=== PATIENT | female | born 1990 | race Caucasian/White ===

== ENCOUNTER 2021-05-09 13:53 | Inpatient (IN) | payer OTHER ==
[2021-05-09] MEDS ORDERED: ELECTROLYTE-148 SOLN 500 ML IV ONE (15:00)
[2021-05-09 15:52] LABS: BASO % 0.6 % (0-2.0); EOS % 2.4 % (0-4.5); HEMATOCRIT 35.4 % (32.4-45.2); HEMOGLOBIN 11.6 GM/dL (10.7-15.3); LYMPH % 20.5 % (8-40); MCH 29.3 pg (25.7-33.7); MCHC 32.9 g/dl (32.0-36.0); MEAN CELL VOLUME 89.1 fl (80-96); MEAN PLT VOLUME 8.6 fl (7.5-11.1); MONO % 4.7 % (3.8-10.2); NEUT % 71.8 % (42.8-82.8); PLATELET COUNT 211 10^3/uL (134-434); RBC 3.97 M/mm3 (3.60-5.2); RDW 14.2 % (11.6-15.6); WHITE BLOOD COUNT 5.4 K/mm3 (4.0-10.0)
[2021-05-09] MEDS ORDERED: ELECTROLYTE-148 SOLN 500 ML IV SCH (16:00)
[2021-05-09 16:01] LABS: INR 0.85 (0.83-1.09); PROTHROMBIN TIME (PATIENT) 10.3 SEC (9.7-13.0)
[2021-05-09 16:12] LABS: CALCIUM 8.5 mg/dL (8.5-10.1)
[2021-05-09 16:13] LABS: BLOOD UREA NITROGEN 13.1 mg/dL (7-18)
[2021-05-09 16:16] LABS: CREATININE 0.6 mg/dL (0.55-1.3)
[2021-05-09 16:18] VITALS: BMI 34.8
[2021-05-09] MEDS ORDERED: CITRIC ACID/SODIUM CITRATE 30 ML UNIT-DOSE CUP PO ONE (16:30)
[2021-05-09] MEDS ORDERED: OXYTOCIN 20 UNITS in 0.9% NS 20 UNIT/1,000 ML INFUS.BAG IV ONE ×2 (17:26→20:11)
[2021-05-09] MEDS ORDERED: CEFAZOLIN 2 GM/D5W 2 GM/50 ML ML IVPB ONE (17:26)
[2021-05-09] MEDS ORDERED: morphine SULFATE/PF 0.5 MG/ML (2cc Syringe - QUVA) ONE (17:29)
[2021-05-09] MEDS ORDERED: KETOROLAC TROMETHAMINE 30 MG/1 ML VIAL ONE (17:31)
[2021-05-09] MEDS ORDERED: OXYTOCIN 10 UNITS/ML VIAL ONE (18:03)
[2021-05-09] MEDS ORDERED: ONDANSETRON 4 MG/2 ML VIAL IVPUSH PRN (19:08)
[2021-05-09 19:30] LABS: CORD BASE EXCESS -6.7 mmol/L (0-2); CORD HCO3 21.9 mmHg (20-29); CORD PCO2 56.2 mmHg (30-78); CORD pH 7.209 (7.14-7.44)
[2021-05-09 19:32] LABS: CORD HCO3 23.3 mmHg (20-29); CORD PCO2 52.9 mmHg (30-78); CORD pH 7.262 (7.14-7.44)
[2021-05-09] MEDS: OXYTOCIN 20 UNITS in 0.9% NS 20 UNIT/1,000 ML INFUS.BAG IV SCH (20:25)
[2021-05-09] MEDS ORDERED: oxyCODONE HCL 5 MG TABLET PO PRN (21:33)
[2021-05-09] MEDS ORDERED: ACETAMINOPHEN 1000 MG/100 ML VIAL (NON FORMULARY) IVPB ONE (21:45)
[2021-05-10] MEDS: OXYTOCIN 20 UNITS in 0.9% NS 20 UNIT/1,000 ML INFUS.BAG IV SCH ×2 (02:35→23:10)
[2021-05-10] MEDS ORDERED: IBUPROFEN 600 MG TABLET (FP) PO PRN (02:37)
[2021-05-10] MEDS ORDERED: BENZOCAINE 20% 57 GM BOTTLE TP PRN (11:09)
[2021-05-10] MEDS ORDERED: diphenhydrAMINE HCL 25 MG CAPSULE (FP) PO PRN (11:09)
[2021-05-10] MEDS ORDERED: METHYLERGONOVINE MALEATE 0.2 MG/1 ML AMP IM PRN (11:09)
[2021-05-10] MEDS ORDERED: BENZOCAINE 28 GM HEMORRHOIDAL OINTMENT RC PRN (11:09)
[2021-05-10] MEDS ORDERED: IBUPROFEN 800 MG/8 ML IJ IVPB PRN (11:09)
[2021-05-10] MEDS ORDERED: WITCH HAZEL 50% (TUCKS) 40 PAD/JAR PAD TP PRN (11:09)
[2021-05-10] MEDS ORDERED: OXYTOCIN 20 UNITS in 0.9% NS 20 UNIT/1,000 ML INFUS.BAG IV SCH (11:15)
[2021-05-10] MEDS ORDERED: DEXTROSE 5%-LACTATED RINGERS 1,000 ML IV SCH (11:15)
[2021-05-10 13:44] LABS: BASO % 0.5 % (0-2.0); EOS % 1.4 % (0-4.5); HEMATOCRIT 30.9 % (32.4-45.2); HEMOGLOBIN 10.1 GM/dL (10.7-15.3); LYMPH % 15.6 % (8-40); MCH 29.3 pg (25.7-33.7); MCHC 32.6 g/dl (32.0-36.0); MEAN CELL VOLUME 89.9 fl (80-96); MEAN PLT VOLUME 8.8 fl (7.5-11.1); MONO % 2.7 % (3.8-10.2); NEUT % 79.8 % (42.8-82.8); PLATELET COUNT 180 10^3/uL (134-434); RBC 3.43 M/mm3 (3.60-5.2); RDW 14.8 % (11.6-15.6); WHITE BLOOD COUNT 5.7 K/mm3 (4.0-10.0)
[2021-05-10] MEDS: ACETAMINOPHEN 325 MG TABLET (FP) PO PRN ×3 (14:01→22:17)
[2021-05-10] MEDS: SIMETHICONE 80 MG TAB.CHEW (FP) PO PRN ×3 (14:01→22:19)
[2021-05-10] MEDS: IBUPROFEN 600 MG TABLET (FP) PO PRN ×3 (14:01→22:18)
[2021-05-10] MEDS: CEFAZOLIN 1 GM/D5W 1 GM/50 ML BAG IVPB SCH (17:55)
[2021-05-10] MEDS: SENNOSIDES/DOCUSATE COMBO (SENNA PLUS) TABLET (UD) PO PRN (22:17)
[2021-05-10] MEDS: oxyCODONE HCL 5 MG TABLET PO PRN (22:18)
[2021-05-11] MEDS: CEFAZOLIN 1 GM/D5W 1 GM/50 ML BAG IVPB SCH (01:35)
[2021-05-11] MEDS: ACETAMINOPHEN 325 MG TABLET (FP) PO PRN ×3 (02:10→22:41)
[2021-05-11] MEDS: SIMETHICONE 80 MG TAB.CHEW (FP) PO PRN ×4 (02:10→22:43)
[2021-05-11] MEDS: oxyCODONE HCL 5 MG TABLET PO PRN ×3 (02:10→22:42)
[2021-05-11] MEDS: IBUPROFEN 600 MG TABLET (FP) PO PRN ×3 (02:11→15:27)
[2021-05-11 09:50] LABS: BASO % 0.6 % (0-2.0); EOS % 2.9 % (0-4.5); HEMATOCRIT 27.9 % (32.4-45.2); LYMPH % 21.6 % (8-40); MCH 29.4 pg (25.7-33.7); MCHC 32.4 g/dl (32.0-36.0); MEAN CELL VOLUME 90.9 fl (80-96); MEAN PLT VOLUME 8.5 fl (7.5-11.1); MONO % 3.5 % (3.8-10.2); NEUT % 71.4 % (42.8-82.8); PLATELET COUNT 184 10^3/uL (134-434); RBC 3.07 M/mm3 (3.60-5.2); RDW 14.5 % (11.6-15.6); WHITE BLOOD COUNT 5.7 K/mm3 (4.0-10.0)
[2021-05-11] MEDS ORDERED: BISACODYL 10 MG SUPP.RECT PR PRN (11:09)
[2021-05-11] MEDS: SENNOSIDES/DOCUSATE COMBO (SENNA PLUS) TABLET (UD) PO PRN (22:42)
[2021-05-12] MEDS: oxyCODONE HCL 5 MG TABLET PO PRN (04:24)
[2021-05-12] MEDS: IBUPROFEN 600 MG TABLET (FP) PO PRN ×2 (04:24→10:40)
[2021-05-12] MEDS: SIMETHICONE 80 MG TAB.CHEW (FP) PO PRN (04:25)
[2021-05-12] MEDS: ACETAMINOPHEN 325 MG TABLET (FP) PO PRN (04:33)
[2021-05-12 08:32] VITALS: BP 125/70; PULSE 89; TEMP 98.5
== END 2021-05-12 13:35 | disposition home or self-care (01) | DRG 540 ==
LOC: JLDR 13:53 → J3W 20:35
PROVIDERS: ADMIT Family Medicine; ATTEND Family Medicine
PROC: 10D00Z1 Extraction of Products of Conception, Low, Open Approach (ICD-10-PCS; principal; 2021-05-09)
DX: O34.219 Maternal care for unspecified type scar from previous cesarean delivery (principal); O36.63X0 Maternal care for excessive fetal growth, third trimester, not applicable or unspecified; Z3A.49 Greater than 42 weeks gestation of pregnancy; Z37.0 Single live birth
CPT/HCPCS: 36415; 36600; 80048; 82803; 85025; 85610; 85730; 86780; 86850; 86900; 86901; 88307-TC; C9803; J0131; U0003; U0005

== ENCOUNTER 2022-04-26 10:00 | Inpatient (IN) | payer OTHER ==
[2022-04-26] MEDS ORDERED: ELECTROLYTE-148 SOLN 500 ML IV SCH ×2 (11:00)
[2022-04-26] MEDS ORDERED: CITRIC ACID/SODIUM CITRATE 30 ML UNIT-DOSE CUP PO ONE (11:00)
[2022-04-26 11:51] VITALS: BMI 35.0
[2022-04-26] MEDS ORDERED: morphine SULFATE/PF 1 MG/2 ML (2cc Syringe - QUVA) EP ONE (12:03)
[2022-04-26] MEDS ORDERED: ONDANSETRON 4 MG/2 ML VIAL IVPUSH PRN (12:03)
[2022-04-26] MEDS ORDERED: morphine SULFATE/PF 1 MG/2 ML (2cc Syringe - QUVA) ONE (12:07)
[2022-04-26] MEDS ORDERED: ceFAZolin SODIUM 1 GM VIAL ONE (12:07)
[2022-04-26] MEDS ORDERED: SODIUM CHLORIDE 0.9% P/F 10 ML VIAL IJ ONE (12:07)
[2022-04-26] MEDS ORDERED: LACTATED RINGERS SOLUTION 1,000 ML IV SCH (12:15)
[2022-04-26] MEDS ORDERED: PHENYLEPHRINE HCL 10 MG/1 ML SINGLE DOSE VIAL ONE (12:42)
[2022-04-26] MEDS ORDERED: OXYTOCIN 10 UNITS/ML VIAL ONE (12:44)
[2022-04-26] MEDS: OXYTOCIN 20 UNITS in 0.9% NS 20 UNIT/1,000 ML INFUS.BAG IV SCH ×2 (12:45→18:16)
[2022-04-26] MEDS ORDERED: OXYTOCIN 20 UNITS in 0.9% NS 20 UNIT/1,000 ML INFUS.BAG IV ONE (12:59)
[2022-04-26] MEDS ORDERED: MIDAZOLAM HCL 2 MG/2 ML SINGLE DOSE VIAL ONE (13:11)
[2022-04-26] MEDS ORDERED: ACETAMINOPHEN 1000 MG/100 ML BAG IVPB PRN (13:53)
[2022-04-26] MEDS ORDERED: IBUPROFEN 600 MG TABLET (FP) PO PRN (13:53)
[2022-04-26] MEDS ORDERED: ONDANSETRON 4 MG/2 ML VIAL IVPB PRN (13:53)
[2022-04-26] MEDS ORDERED: SENNOSIDES/DOCUSATE COMBO (SENNA PLUS) TABLET (UD) PO PRN (13:53)
[2022-04-26 14:00] LABS: CORD BASE EXCESS -5.2 mmol/L (0-2); CORD HCO3 21.3 mmHg (20-29); CORD PCO2 44.8 mmHg (30-78); CORD pH 7.294 (7.14-7.44)
[2022-04-26 14:03] LABS: CORD HCO3 26.3 mmHg (20-29); CORD PCO2 60.9 mmHg (30-78); CORD pH 7.253 (7.14-7.44)
[2022-04-26] MEDS: SIMETHICONE 80 MG TAB.CHEW (FP) PO PRN (23:46)
[2022-04-26] MEDS: IBUPROFEN 800 MG/8 ML IJ IVPB PRN (23:47)
[2022-04-27] MEDS: SIMETHICONE 80 MG TAB.CHEW (FP) PO PRN ×3 (06:10→23:25)
[2022-04-27 07:45] LABS: BASO % 0.3 % (0-2.0); EOS % 1.7 % (0-4.5); HEMATOCRIT 29.5 % (32.4-45.2); HEMOGLOBIN 9.7 GM/dL (10.7-15.3); LYMPH % 17.5 % (8-40); MCH 28.7 pg (25.7-33.7); MCHC 32.9 g/dl (32.0-36.0); MEAN CELL VOLUME 87.3 fl (80-96); MEAN PLT VOLUME 8.6 fl (7.5-11.1); MONO % 3.7 % (3.8-10.2); NEUT % 76.8 % (42.8-82.8); PLATELET COUNT 211 10^3/uL (134-434); RBC 3.38 M/mm3 (3.60-5.2); RDW 15.4 % (11.6-15.6); WHITE BLOOD COUNT 5.7 K/mm3 (4.0-10.0)
[2022-04-27] MEDS: IBUPROFEN 800 MG/8 ML IJ IVPB PRN (09:21)
[2022-04-27] MEDS ORDERED: BISACODYL 10 MG SUPP.RECT RC PRN (13:54)
[2022-04-27] MEDS: ACETAMINOPHEN 325 MG TABLET (FP) PO PRN ×2 (15:01→21:36)
[2022-04-27] MEDS: IBUPROFEN 400 MG TABLET (FP) PO PRN ×2 (18:18→23:26)
[2022-04-28] MEDS: SIMETHICONE 80 MG TAB.CHEW (FP) PO PRN ×2 (06:21→12:31)
[2022-04-28] MEDS: ACETAMINOPHEN 325 MG TABLET (FP) PO PRN (06:21)
[2022-04-28 10:08] VITALS: BP 126/84; PULSE 86; TEMP 97.7
[2022-04-28] MEDS: IBUPROFEN 400 MG TABLET (FP) PO PRN (12:31)
== END 2022-04-28 18:55 | disposition home or self-care (01) | DRG 540 ==
LOC: JLDR 10:35 → J3W 15:49
PROVIDERS: ADMIT Family Medicine; ATTEND Family Medicine
PROC: 10D00Z1 Extraction of Products of Conception, Low, Open Approach (ICD-10-PCS; principal; 2022-04-26)
DX: O34.211 Maternal care for low transverse scar from previous cesarean delivery (principal); Z3A.39 39 weeks gestation of pregnancy; Z37.0 Single live birth
CPT/HCPCS: 36415; 36600; 80053; 81003; 82803; 85025; 85610; 85730; 86780; 86850; 86900; 86901; 88307-TC; C9803-CS; U0003; U0005

== ENCOUNTER 2023-11-25 10:00 | Inpatient (IN) | payer OTHER ==
[2023-11-25] MEDS: ELECTROLYTE-148 SOLN 1,000 ML IV SCH (11:00)
[2023-11-25 11:29] VITALS: BMI 33.6
[2023-11-25] MEDS ORDERED: OXYTOCIN 30 UNITS in 0.9% NS 30 UNIT/500 ML INFUS.BAG IVPB ONE (11:29)
[2023-11-25] MEDS ORDERED: morphine SULFATE/PF 1 MG/2 ML (2cc Syringe - QUVA) ONE (11:30)
[2023-11-25] MEDS ORDERED: ceFAZolin SODIUM 1 GM VIAL ONE (11:31)
[2023-11-25] MEDS ORDERED: ONDANSETRON 4 MG/2 ML VIAL ONE (11:31)
[2023-11-25] MEDS ORDERED: PHENYLEPHRINE HCL 10 MG/1 ML SINGLE DOSE VIAL ONE (11:31)
[2023-11-25] MEDS ORDERED: METOCLOPRAMIDE HCL INJECTION 10 MG/2 ML VIAL ONE (11:31)
[2023-11-25] MEDS ORDERED: DEXAMETHASONE SOD PHOSPHATE 4 MG/1 ML VIAL ONE (11:31)
[2023-11-25] MEDS ORDERED: FENTANYL CITRATE/PF 50 MCG/ML VIAL ONE (11:31)
[2023-11-25] MEDS: CITRIC ACID/SODIUM CITRATE 30 ML UNIT-DOSE CUP PO ONE (11:45)
[2023-11-25] MEDS ORDERED: KETOROLAC TROMETHAMINE 30 MG/1 ML VIAL ONE (12:56)
[2023-11-25 13:49] LABS: CORD BASE EXCESS -5.1 mmol/L (0-2); CORD HCO3 21.9 mmHg (20-29); CORD PCO2 48.2 mmHg (30-78); CORD pH 7.276 (7.14-7.44)
[2023-11-25 14:04] LABS: CORD BASE EXCESS -7.1 mmol/L (0-2); CORD HCO3 19.7 mmHg (20-29); CORD PCO2 44.3 mmHg (30-78); CORD pH 7.266 (7.14-7.44)
[2023-11-25] MEDS ORDERED: ONDANSETRON 4 MG/2 ML VIAL IVPB PRN (14:23)
[2023-11-25] MEDS: OXYTOCIN 20 UNITS in 0.9% NS 20 UNIT/1,000 ML INFUS.BAG IV SCH (14:25)
[2023-11-25] MEDS ORDERED: OXYTOCIN 20 UNITS in 0.9% NS 20 UNIT/1,000 ML INFUS.BAG IV ONE (14:28)
[2023-11-25] MEDS: morphine SULFATE/PF 1 MG/2 ML (2cc Syringe - QUVA) IT ONE (15:29)
[2023-11-25] MEDS ORDERED: ACETAMINOPHEN INJECTION 100 ML IVPB ONE (16:17)
[2023-11-25] MEDS: ACETAMINOPHEN 1000 MG/100 ML BAG IVPB SCH (16:20)
[2023-11-25] MEDS: IBUPROFEN 800 MG/8 ML IJ IVPB SCH (18:05)
[2023-11-25] MEDS: SENNOSIDES/DOCUSATE COMBO (SENNA PLUS) TABLET (UD) PO SCH (21:09)
[2023-11-26 08:33] LABS: BASO % 0.3 % (0-2.0); EOS % 0.9 % (0-4.5); HEMATOCRIT 28.3 % (32.4-45.2); LYMPH % 22.4 % (8-40); MCH 26.8 pg (25.7-33.7); MCHC 31.9 g/dl (32.0-36.0); MEAN PLT VOLUME 9.2 fl (7.5-11.1); MONO % 5.3 % (3.8-10.2); NEUT % 71.1 % (42.8-82.8); PLATELET COUNT 204 10^3/uL (134-434); RBC 3.37 M/mm3 (3.60-5.2); RDW 14.6 % (11.6-15.6); WHITE BLOOD COUNT 5.4 K/mm3 (4.0-10.0)
[2023-11-26] MEDS: PRENATAL VITAMINS W/ FOLIC ACID TABLET (FP) PO SCH (09:50)
[2023-11-26] MEDS: SIMETHICONE 80 MG TAB.CHEW (FP) PO PRN (09:53)
[2023-11-26] MEDS: oxyCODONE HCL 5 MG TABLET PO PRN (17:08)
[2023-11-26] MEDS: ACETAMINOPHEN 500 MG TABLET (FP) PO PRN (23:01)
[2023-11-27] MEDS: oxyCODONE HCL 5 MG TABLET PO PRN (09:00)
[2023-11-27] MEDS: IBUPROFEN 600 MG TABLET (FP) PO PRN (14:24)
[2023-11-27] MEDS: ASCORBIC ACID 500 MG TABLET (FP) PO SCH (14:46)
[2023-11-27] MEDS: DOCUSATE SODIUM 100 MG CAPSULE (FP) PO PRN (20:23)
[2023-11-27] MEDS ORDERED: FERROUS SO4 325 MG TABLET (FP) PO SCH (22:00)
[2023-11-27] MEDS: FERROUS SO4 325 MG TABLET (FP) PO SCH (22:12)
[2023-11-28 10:17] VITALS: BP 125/70; PULSE 81; RESP 16; TEMP 98.7
[2023-11-28] MEDS: BISACODYL 10 MG SUPP.RECT RC PRN (14:51)
== END 2023-11-28 15:05 | disposition home or self-care (01) | DRG 540 ==
LOC: JLDR 10:25 → J3W 16:40
PROVIDERS: ADMIT Family Medicine; ATTEND Family Medicine
PROC: 10D00Z1 Extraction of Products of Conception, Low, Open Approach (ICD-10-PCS; principal; 2023-11-25)
DX: O34.211 Maternal care for low transverse scar from previous cesarean delivery (principal); Z37.0 Single live birth; O90.81 Anemia of the puerperium; D64.9 Anemia, unspecified; Z3A.39 39 weeks gestation of pregnancy
CPT/HCPCS: 36415; 36600; 80053; 81003; 82803; 85025; 85610; 86850; 86900; 86901; 94010; J0131